=== PATIENT | male | born 2000 | race Hispanic/Latino ===

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

== ENCOUNTER 2020-04-11 23:47 | Emergency (ER) | payer OTHER ==
[2020-04-12] MEDS ORDERED: Lidocaine 1% (PF) 30 ML VIAL ONE (00:45)
[2020-04-12] MEDS ORDERED: Boostrix 0.5 ML (Tdap) VIAL ONE (01:08)
[2020-04-12] MEDS ORDERED: Bacitracin 1 PK ONE (02:00)
== END 2020-04-12 02:02 | disposition home or self-care (01) ==
LOC: ERS 23:47
DX: S61.012A Laceration without foreign body of left thumb without damage to nail, initial encounter (principal); W22.8XXA Striking against or struck by other objects, initial encounter; Y92.513 Shop (commercial) as the place of occurrence of the external cause; Z23 Encounter for immunization
CPT/HCPCS: 12001; 90471; 90715; J2001